=== PATIENT | male | born 1945 | race Hispanic/Latino ===

== ENCOUNTER 2018-05-11 20:27 | Emergency (ER) | payer OTHER, MEDICARE ==
[2018-05-11 21:09] VITALS: BP 154/76; PULSE 80; RESP 20; TEMP 98.2; O2SAT 97
[2018-05-11] MEDS ORDERED: Tdap Vaccine 0.5 ml Vial (10-64 yrs) IM ONE ×2 (21:11→21:20)
--- NOTE | 2018-05-11 21:14 | C.PDOC ---
History Of Present Illness 73 year old male presents to the ED for evaluation of wound to left foot, sustained today. Patient states he stepped on a nail today while wearing house shoes. He called his doctor who advised him to come get a Tetanus vaccine. Patient states he cleaned the wound with soap and water at home. Otherwise he denies any numbness, tingling, focal weakness, or other complaints. Time Seen by Provider: 05/11/18 21:02 Chief Complaint (Nursing): Lower Extremity Problem/Injury History Per: Patient History/Exam Limitations: no limitations Onset/Duration Of Symptoms: Hrs Current Symptoms Are (Timing): Still Present Past Medical History Reviewed: Historical Data, Nursing Documentation, Vital Signs Vital Signs: Last Vital Signs Temp 98.2 F 05/11/18 21:08 Pulse 80 05/11/18 21:08 Resp 20 05/11/18 21:08 BP 154/76 H 05/11/18 21:08 Pulse Ox 97 05/11/18 21:08 - Medical History PMH: HTN, Hypercholesterolemia Family History: States: No Known Family Hx - Social History Hx Alcohol Use: Yes Hx Substance Use: No - Immunization History Hx Tetanus Toxoid Vaccination: No Hx Influenza Vaccination: Yes Hx Pneumococcal Vaccination: No Review Of Systems Except As Marked, All Systems Reviewed And Found Negative. Musculoskeletal: Positive for: Foot Pain (left) Skin: Positive for: Lesions (puncture wound to left foot) Neurological: Negative for: Weakness, Numbness, Incoordination Physical Exam - Physical Exam Appears: Well, Non-toxic, No Acute Distress Skin: Warm, Dry, No Rash Head: Atraumatic, Normacephalic Eye(s): bilateral: Normal Inspection Extremity: Normal ROM, Capillary Refill (less than 2 sec), No Deformity, Other (superficial 2mm puncture wound to left foot plantar surface distally near pinky toe, no bleeding, erythema, or pus) Pulses: Left Dorsalis Pedis: Normal, Right Dorsalis Pedis: Normal Neurological/Psych: Oriented x3, Normal Speech, Normal Motor, Normal Sensation ED Course And Treatment O2 Sat by Pulse Oximetry: 97 (RA) Pulse Ox Interpretation: Normal Medical Decision Making Medical Decision Making: Impression: puncture wound with nail through shoe Plan: Cipro and Tetanus vaccine Patient instructed on wound care and to follow up if noticed any increased redness, discharge, fever, streaking return to the office. Disposition Counseled Patient/Family Regarding: Diagnosis, Need For Followup, Rx Given - Disposition Referrals: Byron Hanley MD [Staff Provider] - Disposition: HOME/ ROUTINE Disposition Time: 21:19 Condition: STABLE Additional Instructions: Keep area clean and dry. Wash with warm water and soap. Re-apply bacitracin and band aide if you develop increased redness, discharge, fever, streaking return to the ED or go to your doctor Prescriptions: Ciprofloxacin [Cipro] 1 tab PO BID #10 tab Instructions: Wound Care (DC) Forms: [employer] (Latvian) - POA Present On Arrival: None - Clinical Impression Clinical Impression: Puncture wound of skin from metal nail - PA / [employer] / Resident Statement MD/DO has reviewed & agrees with the documentation as recorded. - Scribe Statement The provider has reviewed the documentation as recorded by the Scribe (Sarah Perez) All medical record entries made by the Scribe were at my direction and personally dictated by me. I have reviewed the chart and agree that the record accurately reflects my personal performance of the history, physical exam, medical decision making, and the department course for this patient. I have also personally directed, reviewed, and agree with the discharge instructions and disposition.
== END 2018-05-11 21:28 | disposition home or self-care (01) ==
LOC: C.ER 20:27
DX: S91.332A Puncture wound without foreign body, left foot, initial encounter (principal); W45.0XXA Nail entering through skin, initial encounter; Y92.009 Unspecified place in unspecified non-institutional (private) residence as the place of occurrence of the external cause; Z23 Encounter for immunization

== ENCOUNTER 2018-08-27 07:10 | Outpatient (CLI) | payer OTHER, MEDICARE | END 2018-08-27 07:11 | disposition home or self-care (01) | LOC: C.LAB 07:10 | DX: E11.8 Type 2 diabetes mellitus with unspecified complications (principal) ==